=== PATIENT | female | born 1985 | race Two or more races ===

== ENCOUNTER 2025-02-24 08:16 | Outpatient (AMB) | payer MEDICAID, SELFPAY ==
[2025-02-24 08:29] VITALS: BP 119/77; PULSE 88; RESP 16; TEMP 36.2; O2SAT 98; BMI 29.8
--- NOTE | 2025-02-24 08:29 | AMB.OBINITIA ---
Vital Signs 02/24/25 08:29 Height 1.7 m Height Method Stated Weight 86.353 kg Weight Measurement Method Standing Scale BMI 29.8 BP 119/77 Blood Pressure Source Automatic Cuff Blood Pressure Location Left Upper Arm Position Sitting Respiration 16 Pulse 88 Pulse Source Monitor Temp 97.2 F Temp Source Oral Pulse Oximetry (%) 98 Oxygen Delivery Method Room Air Allergies/Home Meds Allergies & Medications Allergies No Known Allergies Allergy (Verified 02/24/25 08:32) Medication Reconciliation aspirin 81 mg tablet,delayed release (Adult Aspirin Regimen) 81 mg PO QDAY #30 tabs 02/24/25 [Rx] Intake Visit Data Collection New Patient or Established: New Patient (never been to [facility]) Reason for Visit:: OB TRANSFER Seen by Clinical Staff ONLY (RN/MA): No Screw Driver Operator Required: No Do You Feel Safe at Home: Yes Authorities Contacted: N/A PCP or OBGYN visit in last 3 months: Yes Hx Now: Yes Are you currently on any form of Control: No Last menstrual period: 10/18/24 Pain Present Currently: No Pain Scale Used: Garcia-Moser/Numerical Pain scale:: 0 Smoking Status Smoking Status: Never smoker Questionnaires Covid-19 Vaccine Questionnaire Has patient been vacinated for Covid-19 Have you been vacinated for Covid-19: Yes PHQ-9 PHQ-2 Over the last 2 weeks, how often have you been bothered by any of the following problems? 1. Little interest or pleasure in doing things: not at all 2. Feeling down, depressed, or hopeless: not at all Total score: 0 PHQ-9 3. Trouble falling or staying asleep, or sleeping too much: Not at all 4. Feeling tired or having little energy: Not at all 5. Poor appetite or overeating: Not at all 6. Feeling bad about yourself - or that you are a failure or have let yourself or your family down: Not at all 7. Trouble concentrating on things, such as reading the newspaper or watching television: Not at all 8. Moving or speaking so slowly that other people could have noticed? - Or the opposite - being so fidgety or restless that you have been moving around a lot more than usual: not at all 9. Thoughts that you would be better off or of hurting yourself in some way: Not at all Total score: 0 If you checked off any problems, how difficult have these problems made it for you to do your work, take care of things at home, or get along with other people?: not difficult at all Source: Developed by Drs. Isac Sandhu, Bette Sherwood, Valente Bazan and colleagues, with an educational ayaka from [employer]. Depression screen completed yes Social History Living Situation History Marital Status: Single Lives With: Family Housing: House Tobacco History Smoking Status: Never smoker Second Hand Smoke Exposure: No Domestic Abuse History Do You Feel Safe at Home: Yes History of Present Illness HPI Narrative 40-year-old 3 para 2 for OBI. Patient is a transfer from [facility] with records. She had her first initial visit there and verification of . Patient states her last period October 18, 2024. This gives a due date July 25, 2025. Patient denies social habits. Denies surgeries. Denies chronic illness. patient denies leaking, bleeding, contractions. She has had no problems with . She is A+, antibody screen negative, RPR nonreactive, rubella nonimmune, hepatitis B negative, hep C negative, HIV. GC and Chlamydia were negative. She had a normal Pap in 2023. And her TSH was normal. And cystic fibrosis was negative. Patient's youngest child is 15 years old. OB Initial Visit OB Flowsheet OB Flowsheet Initial Weight: Not Recorded Date <del>?</del> EGA Weight BP Alb Glu CTX Pres Fundal ht FHR Mov Dilation Station Effacement Hx Notes Visit Note 02/24/25 <del>?</del> 18w 3d 86.353 kg 119/77 absent unknown 18 145 active 40-year-old 3 para 2 for OBI. Transfer with records from [facility]. Denies leaking, bleeding, contractions. Last period October 18, 2024. Estimated due date is July 25, 2024. Patient is 18 weeks aFP and SMA today. Schedule with Dr. Martines for anatomy scan. Will discuss disability next visit. Patient started on low-dose baby aspirin. Continue vitamins. And return in 4 weeks OB check NIPT, aFP and SMA today. Schedule with Dr. Martines for anatomy scan. Will discuss disability next visit. Patient started on low-dose baby aspirin. Continue vitamins. And return in 4 weeks OB check Menstrual History Menstrual reliability: definite Flow: normal Menstrual regularity: regular Monthly: Yes Age at menarche: 17 On control pills at conception: No OB History : 3 Para: 2 Hx # Pregnancies: 0 Hx Total # of Abortions (Spontaneous & Elective): 0 # of Living Children: 2 Delivery History 1st : Child's name: DREW CANCINO date: 01/30/06 sex: male Gestational age at delivery (weeks): 40 Delivery type: vaginal History of depression before or after : No 2nd : Child's name: JOYCELYN CANCINO date: 02/02/10 sex: female Gestational age at delivery (weeks): 40 Delivery type: vaginal History of depression before or after : No Infection History & Risk Evaluation History of STDs: none HIV risk evaluation: low risk Hepatitis B risk evaluation: low risk Patient or partner has history of Genital Herpes: No Varicella/chicken pox status: immunized Genetic Screening & History Genetic Screening/Teratology Counseling - Includes patient, baby's father, or anyone in either family with: 1. Patient's age 35 years or older as of estimated date of delivery: Yes 2. Thalassemia (Irish, Tunisian, Mediterranean, or Background); MCV less than 80: No 3. Neural Tube Defect (Meningomyelocele, Spina Bifida, or Anencephaly): No 4. Congenital Heart Defect: No 5. Down Syndrome: No 6. Dirk-Sachs (Ashkenazi Sabianism, Cajun, Bengali Marshallese): No 7. Carmen Disease (Ashkenazi Sabianism): No 8. Familial Dysautonomia (Ashkenazi Sabianism): No 9. Sickle Cell Disease or Trait (): No 10. Hemophilia or other blood disorders: No 11. Muscular Dystrophy: No 12. Cystic Fibrosis: No 13. Paras's Chorea: No 14. Mental Retardation/Autism: No 15. Other inherited genetic or chromosomal disorder: No 16. Maternal Metabolic Disorder (EG,TYPE 1 Diabetes, PKU): No 17. Patient or baby's father had a child with defects not listed above: No 18. Recurrent loss or a stillbirth: No 19. Medications (including supplements, vitamins, herbs or otc drugs)/illicit/recreational drugs/alcohol since last menstrual period: No 20. Any other: No Infection History 1. Live with someone with TB or exposed to TB: No 2. Rash or viral illness since last menstrual period: No 3. Hepatitis B,C: No Other (see comments) Source: [employer] Review of Systems Review of Systems Systems Reviewed: All systems reviewed, normal except as documented Exam General Limitations: no limitations General Appearance: alert, in no apparent distress, comfortable, cooperative, healthy appearing, well developed and well groomed Chest Chest inspection: Present normal inspection and symmetric chest wall rise Resp Respiratory exam: Present normal lung sounds bilaterally Card Cardiovascular exam: Present regular rate, normal rhythm and normal heart sounds Abdominal Abdominal exam: Present soft and normal bowel sounds Psych Psychiatric exam: Present normal affect and normal mood Office Procedures OBC Clinic LOC & Office Proc's Nursing/Assessment Patient Status: Established Patient OB Clinic Nursing Assessment: Medication Reconciliation, Update PMH in EMR and Vital Signs OB Clinic Coordination of Care: Consent,records obtained, informed consent, Education Simp Pt/Fam, Lab and Imaging orders, Results/Orders obtained and Staff clarify orders Special Needs: Heart tones Established Patient Charge Established Patient Point Assignment: 110 Established Patient Point Charge: EP Level 3 (80-115) Assessment & Plan Diagnosis / Problem List (1) Advanced maternal age (AMA) in : Status: Acute (2) Encounter for supervision of high risk in second trimester, antepartum: Status: Acute Plan NIPT, AFP, send spinal muscular atrophy. Schedule with Dr. Martines for anatomy scan. Discussed labor precautions. Continue prenatals. Return in 4 weeks OB check Additional Plan Follow Up: 4 Weeks (obc)
== END 2025-02-24 09:23 | disposition home or self-care (01) ==
LOC: HODSOBC 08:16
PROVIDERS: PCP Physician Assistant; Referring Provider Physician Assistant; Supervising Provider Advanced Practice Midwife; Visit Provider Advanced Practice Midwife
DX: O09.522 Supervision of elderly multigravida, second trimester (principal); Z3A.18 18 weeks gestation of pregnancy
CPT/HCPCS: 99213; G0463

== ENCOUNTER 2025-04-20 08:56 | Outpatient (AMB) | payer MEDICAID, SELFPAY ==
[2025-04-20 09:01] VITALS: BP 126/76; PULSE 96; RESP 18; TEMP 36.7; O2SAT 98; BMI 30.9
--- NOTE | 2025-04-20 09:01 | OBCLNT_ITS ---
Vital Signs 04/20/25 09:01 Height 1.7 m Height Method Stated Weight 89.528 kg Weight Measurement Method Standing Scale BMI 30.9 BP 126/76 Blood Pressure Source Automatic Cuff Blood Pressure Location Left Upper Arm Position Sitting Respiration 18 Pulse 96 Pulse Source Monitor Temp 98.1 F Temp Source Oral Pulse Oximetry (%) 98 Oxygen Delivery Method Room Air Allergies/Home Meds Allergies & Medications Allergies No Known Allergies Allergy (Verified 04/20/25 09:02) Medication Reconciliation aspirin 81 mg tablet,delayed release (Adult Aspirin Regimen) 81 mg PO QDAY #30 tabs 02/24/25 [Rx Confirmed 04/20/25] vitamin-ferrous fumarate 28 mg iron-folic acid 800 mcg tablet ( Vitamins with Minerals) 1 tab PO QDAY #60 tabs 02/27/25 [Rx Confirmed 04/20/25] vits no.126-ferrous fum 28 mg iron-folic acid 800 mcg tablet (Classic ) 1 tab PO QDAY 90 days #90 tabs 03/03/25 [Rx Confirmed 04/20/25] Immunizations Immunizations Flu Vaccine in the Last 12 Months: No Flu Vaccine Exclusion Criteria: Refused by Patient Care OB Visit Log OB Flowsheet Initial Weight: Not Recorded Date -?-?-?-?-?--?-?-?-?-?-?-?- EGA Weight BP Alb Glu CTX Pres Fundal ht FHR Mov Dilation Station Effacement Hx Notes Visit Note 02/24/25 -?-?-?-?-?-?-?-?-?-?-?-?- 18w 3d 86.353 kg 119/77 absent unknown 18 145 active 40-year-old 3 para 2 for OBI. Transfer with records from [facility]. Denies leaking, bleeding, contractions. Last period October 18, 2024. Estimated due date is July 25, 2024. Patient is 18 weeks a FP and SMA today. Schedule with Dr. Martines for anatomy scan. Will discuss disability next visit. Patient started on low-dose baby aspirin. Continue vitamins. And return in 4 weeks OB check NIPT, aFP and SMA today. Sc hedule with Dr. Martines for anatomy scan. Will discuss disability next visit. Patient started on low-dose baby aspirin. Continue vitamins. And return in 4 weeks OB check 03/23/25 -?-?-?-?-?-?-?-?-?-?-?-?- 22w 2d 87.713 kg absent unknown 22 151 act alex Fetus active. Denies leaking, bleeding, contractions. No OB complaints Discussed NIPT and carrier screen. Follow-up with MFM appointment pending. Return in 4 weeks OB check. Will do third trimester labs prior to visit 04/20/25 -?-?-?-?-?-?-?-?-?-?-?-?- 26w 2d 89.528 kg 126/76 absent unknown 26 145 active Fetus active. Denies leaking, bleeding, contractions. No OB complaints Discussed labor precautions. Discussed weight gain. Order 3-hour GTT. Patient has MFM appointment April 26 and return in 4 weeks OB check MIKE Calculator Estimated Delivery Date Method Current WG Current Estimate 07/25/25 LMP (Certain) 26w 2d Notes Visit Date: 04/20/25 Last Updated by: Yudy Fleming CNM 3rd tri lab: 1 hr: 159, , A1: 5.7 Visit Date: 03/23/25 Last Updated by: Yudy Fleming CNM 02/27: NIPT-/SMA- Visit Date: 02/24/25 Last Updated by: Yudy Fleming CNM 02/24/25: 40 yo . LMP: 10/18/24. EDC: 07/25/25. A+,abs-, rpr;;nr, rub non imm, hbsag-, HIV-,HC-, gc/ct-, UT-, [id number] Office Procedures OBC Clinic LOC & Office Proc's Nursing/Assessment Patient Status: Established Patient OB Clinic Nursing Assessment: Medication Reconciliation, Update PMH in EMR and Vital Signs OB Clinic Coordination of Care: AMA, Complex Care and Chronic Disease 1-5, Consent,records obtained, informed consent, Education Simp Pt/Fam, 1 Ins Authorization, Lab and Imaging orders, Results/Orders obtained and Staff clarify orders Special Needs: Heart tones Established Patient Charge Established Patient Point Assignment: 170 Established Patient Point Charge: EP Level 5 (160-above) Assessment & Plan Diagnosis / Problem List (1) Encounter for supervision of high risk in second trimester, antepartum: Status: Acute (2) Advanced maternal age (AMA) in : Status: Acute Plan 3-hour GTT ordered. [facility] appointment April 26. Patient is going to [place] for vacation. Discussed labor precautions. Increase fluids. Return in 4 weeks OB check Additional Plan Follow Up: 4 Weeks (obc)
== END 2025-04-20 09:23 | disposition home or self-care (01) ==
LOC: HODSOBC 08:56
PROVIDERS: Supervising Provider Advanced Practice Midwife; Visit Provider Advanced Practice Midwife
DX: O09.522 Supervision of elderly multigravida, second trimester (principal); Z28.21 Immunization not carried out because of patient refusal; Z3A.26 26 weeks gestation of pregnancy
CPT/HCPCS: 99215; G0463